=== PATIENT | male | born 1985 | race Native Hawaiian/Other Pacific Islander ===

== ENCOUNTER 2019-05-11 06:46 | Emergency (ER) | payer OTHER ==
[~2019-05-11] VITALS: Ht 182.9 cm; Wt 99.8 kg
[2019-05-11 06:50] VITALS: TEMP 97.3
[2019-05-11 07:15] LABS: PLATELET COUNT 299 K/uL (142-355)
[2019-05-11 07:22] LABS: POTASSIUM 3.5 mmol/L (3.6-5.2)
[2019-05-11 14:00] VITALS: BP 106/72
== END 2019-05-11 14:20 | disposition home or self-care (01) ==
LOC: ED 06:46
PROVIDERS: Student in an Organized Health Care Education/Training Program
DX: F15.10 Other stimulant abuse, uncomplicated (principal); E87.6 Hypokalemia
CPT/HCPCS: 80053; 80307; 80320; 80329; 81000; 85027; 93005; 99285